=== PATIENT | male | born 1975 | race Caucasian/White ===

== ENCOUNTER 2018-06-26 14:51 | Emergency (ER) | payer OTHER ==
[~2018-06-26] VITALS: Ht 190.5 cm; Wt 104.3 kg
[~2018-06-26 14:51] MED LIST: IBUP-23 PO
--- NOTE | 2018-06-26 15:01 | NUR ---
Dr Presley at the bedside for MSE.
[2018-06-26 15:10] VITALS: BP 148/87
--- NOTE | 2018-06-26 15:11 | NUR ---
Patient discharged to home in stable conditon. Written and verbal after care instructions given. Patient verbalizes understanding of instructions.
== END 2018-06-26 15:12 | disposition home or self-care (01) ==
LOC: ER 14:51
DX: B35.3 Tinea pedis (principal); Z79.1 Long term (current) use of non-steroidal anti-inflammatories (NSAID)
CPT/HCPCS: A4663

== ENCOUNTER 2018-07-10 19:33 | Emergency (ER) | payer OTHER ==
[~2018-07-10] VITALS: Ht 188 cm; Wt 104.3 kg
[2018-07-10] MEDS ORDERED: ALBUTEROL SULFATE 2.5 MG/3 ML NEBU NEB ONE (20:00)
[2018-07-10] MEDS ORDERED: BENZONATATE 100 MG CAPSULE PO ONE (20:00)
--- NOTE | 2018-07-10 20:00 | NUR ---
Pt. ambulated into ED w/ c/o cough and facial/neck sweating x 1 week, denies CP/MARIN/F/C/N/V
[2018-07-10] MEDS ORDERED: BENZONATATE 100 MG CAPSULE ONE (20:20)
[2018-07-10] MEDS ORDERED: ALBUTEROL SULFATE 2.5 MG/3 ML NEBU ONE (20:37)
== END 2018-07-10 21:37 | disposition home or self-care (01) ==
LOC: ER 19:35
DX: J11.1 Influenza due to unidentified influenza virus with other respiratory manifestations (principal); Z79.1 Long term (current) use of non-steroidal anti-inflammatories (NSAID)
CPT/HCPCS: A4663

== ENCOUNTER 2023-11-20 13:06 | Emergency (ER) | payer SELFPAY ==
[~2023-11-20] VITALS: Ht 190.5 cm; Wt 95.3 kg
[~2023-11-20 13:06] MED LIST changes: +AMLO2.5T4 PO
[2023-11-20 13:55] VITALS: O2SAT 97
== END 2023-11-20 13:58 | disposition home or self-care (01) ==
LOC: ER 13:07
DX: E88.810 Metabolic syndrome (principal); I10 Essential (primary) hypertension; Z79.1 Long term (current) use of non-steroidal anti-inflammatories (NSAID); Z79.899 Other long term (current) drug therapy
CPT/HCPCS: A4606; A4663